=== PATIENT | male | born 1960 | race Caucasian/White ===

== ENCOUNTER 2016-09-08 10:52 | Emergency (ER) | payer OTHER ==
[2016-09-08 11:44] LABS: ASCORBIC ACID (UR NOT ORDER) NEG (NEG); BILIRUBIN, URINE NEGATIVE (NEG); ER URINALYSIS TAT 0 Hrs 18 Mins; KETONE, URINE TRACE MG/DL (NEG); LEUKOCYTE ESTERASE(NOT OR NEG (NEG); NITRITE (URINE) NEG (NEG); WBC (NOT ORDERED) (RFLEX) 4 (0-5)
[2016-09-08 11:58] LABS: BASOPHILS 0.1 %; BASOPHILS ABSOLUTE 0.01 10/3/uL (0.0-0.16); EOSINOPHILS 0.1 %; EOSINOPHILS ABSOLUTE 0.01 10/3/uL (0.0-0.53); HEMATOCRIT 46.5 % (40.0-51.0); HEMOGLOBIN 15.3 g/dL (13.6-17.8); IMMATURE GRANULOCYTES 0.2 %; IMMATURE GRANULOCYTES ABSOLUTE 0.02 10/3/uL (0.0-0.11); LYMPHOCYTES 9.2 %; LYMPHOCYTES ABSOLUTE 0.86 10/3/uL (0.67-4.30); MEAN CORPUS HGB CONC 32.9 g/dL (32.0-36.0); MEAN CORPUSCULAR HEMOGLOB 28.1 pg (26.0-34.0); MEAN CORPUSCULAR VOLUME 85.3 fL (80-100); MEAN PLATELET VOLUME 10.2 fL (9.2-13.0); MONOCYTES 8.1 %; MONOCYTES ABSOLUTE 0.76 10/3/uL (0.21-1.20); NEUTROPHILS 82.3 %; NEUTROPHILS ABSOLUTE 7.68 10/3/uL (2.02-8.40); PLATELET COUNT 253 10/3/uL (150-400); RBC DISTRIBUTION WIDTH 13.5 % (12.0-16.0); RED CELL COUNT 5.45 10/6/uL (4.7-6.1); WHITE BLOOD CELLS 9.3 10/3/uL (4.5-10.5)
[2016-09-08 12:01] LABS: MANUAL DIFF NO %
[2016-09-08 12:14] LABS: A/G RATIO 0.9 (0.7-1.9); ALBUMIN 3.7 G/DL (3.5-5.0); ALKALINE PHOSPHATASE 60 U/L (45-117); BUN (BLOOD UREA NITROGEN) 13 MG/DL (6-23); CALCIUM, SERUM 8.1 MG/DL (8.5-10.4); CHLORIDE, SERUM 101 MMOL/L (96-112); CO2 (CARBON DIOXIDE) 28 MMOL/L (24-34); CREATININE 1.21 MG/DL (0.70-1.30); GFR AFRICAN AMERICAN 78 ML/MIN (>=60); GFR NON AFRICAN AMERICAN 67 ML/MIN (>=60); GLOBULIN 3.9 G/DL (2.5-4.1); GLUCOSE, SERUM 87 MG/DL (60-99); POTASSIUM, SERUM 3.7 MMOL/L (3.5-5.3); SGOT(AST) 23 U/L (5-40); SGPT(ALT) 24 U/L (5-65); SODIUM, SERUM 133 MMOL/L (135-148); TOTAL BILIRUBIN 1.1 MG/DL (0-1.2); TOTAL PROTEIN 7.6 G/DL (6.0-8.5)
[2016-09-09] MEDS ORDERED: ULTRAM50 PO (13:17)
[2016-09-09] MEDS ORDERED: ZOFRAN4 PO (13:17)
[2016-09-09] MEDS ORDERED: PCET PO (13:18)
[2016-09-09] MEDS ORDERED: ZANTAC150 MG PO (13:31)
== END 2016-09-08 13:16 | disposition home or self-care (01) ==
LOC: ER 10:52
PROVIDERS: Physician Assistant
DX: N20.0 Calculus of kidney (principal); R31.9 Hematuria, unspecified; Z87.442 Personal history of urinary calculi
CPT/HCPCS: 74000; 80053; 81001; 85025; 96374; 96375; 96376; 99284

== ENCOUNTER 2016-09-11 10:52 | Observation (INO) | payer OTHER ==
[2016-09-08 09:34] LABS: BASOPHILS 0.1 %; BASOPHILS ABSOLUTE 0.01 10/3/uL (0.0-0.16); EOSINOPHILS 0 %; HEMATOCRIT 48.3 % (40.0-51.0); HEMOGLOBIN 15.9 g/dL (13.6-17.8); IMMATURE GRANULOCYTES 0.1 %; IMMATURE GRANULOCYTES ABSOLUTE 0.01 10/3/uL (0.0-0.11); LYMPHOCYTES 9.3 %; LYMPHOCYTES ABSOLUTE 0.88 10/3/uL (0.67-4.30); MEAN CORPUS HGB CONC 32.9 g/dL (32.0-36.0); MEAN CORPUSCULAR HEMOGLOB 28.5 pg (26.0-34.0); MEAN CORPUSCULAR VOLUME 86.7 fL (80-100); MEAN PLATELET VOLUME 10.5 fL (9.2-13.0); MONOCYTES 5.8 %; MONOCYTES ABSOLUTE 0.55 10/3/uL (0.21-1.20); NEUTROPHILS 84.7 %; NEUTROPHILS ABSOLUTE 7.98 10/3/uL (2.02-8.40); PLATELET COUNT 279 10/3/uL (150-400); RBC DISTRIBUTION WIDTH 13.3 % (12.0-16.0); RED CELL COUNT 5.57 10/6/uL (4.7-6.1); WHITE BLOOD CELLS 9.4 10/3/uL (4.5-10.5)
[2016-09-08 09:36] LABS: MANUAL DIFF NO %
[2016-09-08 09:45] LABS: BUN (BLOOD UREA NITROGEN) 13 MG/DL (6-23); CALCIUM, SERUM 8.6 MG/DL (8.5-10.4); CHLORIDE, SERUM 101 MMOL/L (96-112); CO2 (CARBON DIOXIDE) 30 MMOL/L (24-34); CREATININE 1.26 MG/DL (0.70-1.30); GFR AFRICAN AMERICAN 74 ML/MIN (>=60); GFR NON AFRICAN AMERICAN 64 ML/MIN (>=60); GLUCOSE, SERUM 103 MG/DL (60-99); POTASSIUM, SERUM 4.1 MMOL/L (3.5-5.3); SODIUM, SERUM 137 MMOL/L (135-148)
[2016-09-08 09:49] LABS: INTERNATIONAL NORMAL RATI 1.1 UNITS (-); PROTIME (NOT ORD) 13.7 SEC (12.0-14.5)
[2016-09-08 09:51] LABS: PARTIAL THROMBO TIME 26.4 SEC (22.5-37.2)
[2016-09-08 10:20] LABS: ASCORBIC ACID (UR NOT ORDER) NEG (NEG); BILIRUBIN, URINE NEGATIVE (NEG); KETONE, URINE 20 MG/DL (NEG); LEUKOCYTE ESTERASE(NOT OR NEG (NEG); WBC (NOT ORDERED) (RFLEX) 1 (0-5)
--- NOTE | ~2016-09-11 | OP ---
Record Of Operation [facility] [address] [place]. [address] NAME: CRISTINA FREEMAN : 64 STATUS : REG REF PAT#: [id number] AGE: 56 ADM/REG DATE : 09/11/16 MR#: [id number] REPORT SERV DATE: 09/11/16 DICTATED BY: KIRIT WINSTON DATE: 09/11/16 REPORT STATUS : Draft TRANSCRIBED BY: MODL DATE: 09/11/16 DATE OF PROCEDURE: 09/11/2016 PREOPERATIVE DIAGNOSIS: 1.4 cm right ureteropelvic junction calculus. POSTOPERATIVE DIAGNOSIS: 1.4 cm right ureteropelvic junction calculus. PROCEDURE: 1. Attempted right percutaneous nephrolithotomy (aborted due to inadequate access). 2. Cystoscopy. 3. Right retrograde pyelogram. 4. Right ureteral stent placement. ANESTHESIA: General. ESTIMATED BLOOD LOSS: 50 mL. FLUID REPLACEMENT: 900 mL of crystalloid. DRAINS: 6-Kosovan 26 cm double-J right ureteral stent with the strings removed. INDICATION: A 56-year-old male with a 1.4 cm right UPJ calculus. TECHNIQUE: The patient has been identified and has gone to the Radiology Department where a right percutaneous nephroureteral tube was placed antegrade. He was left intubated, came to the operating room, and positioned into the prone position. The right flank and nephrostomy tube were prepped and draped in usual sterile fashion. A 0.035 Amplatz super-stiff wire was passed down the right ureter and into the bladder through the open-ended nephroureteral tube. I removed the nephroureteral tube and placed a Sang exchange catheter. I removed the inner core and passed a second wire down the Sang exchange catheter into the bladder. I removed the Sang exchange catheter, and over one of the wires, I positioned a NephroMax nephrostomy tract balloon dilator. I dilated the tract to 30-Kosovan by inflating the balloon and holding it inflated at 14 atmospheres for 5 minutes. I then advanced the plastic outer sheath over the balloon advancing the tip of it to the renal pelvis just below the stone. I then removed the balloon leaving the wires intact. I inserted the rigid nephroscope down the access sheath. I followed the wires and the access was not into the renal pelvis. The access was going either into the most inferior portion of the renal pelvis or the upper ureter and I could not navigate into the renal pelvis. Rather than cause further extravasation and injury, I abandoned the procedure. I asked the radiologist to return to the OR perhaps in attempt at gaining the second access. They did not feel comfortable doing it, so I abandoned any further percutaneous antegrade work. I removed the wires. I closed the skin incision with a horizontal mattress suture of 2-0 Prolene. The patient was repositioned into the dorsal lithotomy position. The penis, groin, and scrotum were prepped and draped in the usual sterile fashion. A 22-Kosovan cystoscopic sheath with 30-degree lens was used for cystourethroscopy. The anterior and Record Of [address] [place]. [address] NAME: CRISTINA FREEMAN : 64 STATUS : REG REF PAT#: [id number] AGE: 56 ADM/REG DATE : 09/11/16 MR#: [id number] REPORT SERV DATE: 09/11/16 DICTATED BY: KIRIT WINSTON DATE: 09/11/16 REPORT STATUS : Draft TRANSCRIBED BY: MODToribio DATE: 09/11/16 bulbous urethra was normal. The prostatic urethra was normal. The bladder was entered. There was some edema around the right ureteral orifice and some blood in the bladder. The blood was evacuated, and the right ureter ureteral orifice was cannulated with a 5-Kosovan open-ended catheter. I advanced the open-ended catheter up into the ureter and then performed a retrograde pyelogram. Surprisingly, there was just a little bit of extravasation. I was able to advance a 0.035 wire through the open-ended catheter and passed the stone into the upper pole of the right kidney. I removed the open-ended catheter and then deployed a 6-Kosovan 26 cm double-J right ureteral stent with a coil being coiled in the upper pole of the kidney. The string and the wire were removed. The bladder was drained. The procedure was terminated. The patient was awakened and taken to the recovery unit in stable and satisfactory condition. PF/MICHAEL Kirit Winston M.D. / [id number] CC: Kirti Winston M.D. NO PCP
--- NOTE | ~2016-09-11 | PREOPHP ---
PreOp History and Physical [facility] [address] [facility] [place]. [address] NAME: CRISTINA FREEMAN : 64 STATUS : DIS Katina PAT#: [id number] AGE: 56 ADM/REG DATE : 09/11/16 MR#: [id number] REPORT SERV DATE: 09/14/16 DICTATED BY: KIRIT PATEL DATE: 09/09/16 REPORT STATUS : Draft TRANSCRIBED BY: MICHAEL DATE: 09/09/16 DATE OF SERVICE: 09/11/2016. CHIEF COMPLAINT: Right UPJ calculus. HISTORY OF PRESENT ILLNESS: Mr. Freeman is a 56-year-old white male with a history of urolithiasis. He presented to the [facility] Emergency Department with excruciating pain in his right side. CT scan revealed a 1.3 cm right UPJ calculus with hydronephrosis. The patient was seen in my office and I consulted him regarding management of the stone. I recommended a right percutaneous nephrolithotomy. He will undergo right percutaneous nephroureteral tube placement by the Radiology Service and then proceed to the operating room for percutaneous nephrolithotomy. The patient had a lithotripsy to a 9 mm right renal calculus one year ago at [facility]. PAST MEDICAL HISTORY: Includes cervical disk disease, chronic pain syndromes, urolithiasis, and hypogonadism. PAST SURGICAL HISTORY: Cervical surgery x3, ESWL, vasectomy, and circumcision. MEDICATIONS: Tramadol and testosterone. ALLERGIES: NONE. SOCIAL HISTORY: Denies drug, alcohol, or tobacco use. FAMILY HISTORY: Brother with urolithiasis. REVIEW OF SYSTEMS: Heartburn, arthritis, chronic pain. PHYSICAL EXAMINATION: GENERAL: Shows a well-developed, well-nourished, white male, in no acute distress. He is afebrile. VITAL SIGNS: Stable. Sclerae anicteric. NECK: Supple. LUNGS: Clear. HEART: Regular rate and rhythm. ABDOMEN: Soft and nontender. Right flank subjectively tender. Left flank nontender. GENITOURINARY: Penis normal. Meatus normal. Testes descended and nontender. EXTREMITIES: He still have decent size lower extremity. No deformities. IMPRESSION: A 1.3 cm right ureteropelvic junction calculus with hydronephrosis. PLAN: Right percutaneous nephrolithotomy. Potential complications of bleeding, infection, and injury to adjacent structures, such as the lung, diaphragm, pleura, liver, gallbladder, colon, small intestine, blood vessels, and nerves have been explained to the patient as well as urinary fistula and obstruction. He consents to proceed. PreOp History and Physical [address] [place]. [address] NAME: CRISTINA FREEMAN : 64 STATUS : DIS Katina PAT#: [id number] AGE: 56 ADM/REG DATE : 09/11/16 MR#: [id number] REPORT SERV DATE: 09/14/16 DICTATED BY: KIRIT PATEL DATE: 09/09/16 REPORT STATUS : Draft TRANSCRIBED BY: MICHAEL DATE: 09/09/16 PF/MICHAEL Kirit Patel M.D. / [id number]
[~2016-09-11 10:52] MED LIST: PCET PO; ULTRAM50 PO; ZANTAC150 MG PO; ZOFRAN4 PO
[2016-09-12 06:14] LABS: HEMOGLOBIN 13.2 g/dL (13.6-17.8)
[2016-09-12 06:15] LABS: HEMATOCRIT 40.7 % (40.0-51.0)
[2016-09-12] MEDS ORDERED: NORCO1 TA1 PO (08:29)
[2016-09-12] MEDS ORDERED: PYR200 PO (08:29)
== END 2016-09-12 11:06 | disposition home or self-care (01) ==
LOC: IMGHOLD 10:52 → RADHOLD 10:55 → 4SO 20:09
PROVIDERS: Urology
PROC: 0T768DZ Dilation of Right Ureter with Intraluminal Device, Via Natural or Artificial Opening Endoscopic (ICD-10-PCS; principal; 2016-09-11 14:45)
DX: N20.1 Calculus of ureter (principal); N20.0 Calculus of kidney; G89.29 Other chronic pain; R31.9 Hematuria, unspecified; R11.2 Nausea with vomiting, unspecified; F41.9 Anxiety disorder, unspecified; K21.9 Gastro-esophageal reflux disease without esophagitis; Z87.442 Personal history of urinary calculi; Z79.899 Other long term (current) drug therapy; Z98.1 Arthrodesis status; Z98.52 Vasectomy status; Z98.890 Other specified postprocedural states; Z84.1 Family history of disorders of kidney and ureter
CPT/HCPCS: 50433; 74000; 76000; 80048; 80053; 81001; 85014; 85018; 85025; 85610; 85730; 93005; 96374; 96375; 96376; 99284; A9270-GY; C1726; C1758; C1769; C1892; C1894; C2617; G0378; J1170; J1956; J2250; J2405; J2710; J3010; Q9967